=== PATIENT | female | born 1985 | race Caucasian/White ===

== ENCOUNTER 2017-12-07 08:13 | Day surgery (SDC) | payer BC ==
[2017-12-04 08:39] VITALS: BMI 22.4
[2017-12-07 09:06] VITALS: O2SAT 100
[2017-12-07] MEDS ORDERED: cefOXitin IV 2 gm in Dextrose 0 GM/0 ML BAG IVPB ONE (10:41)
[2017-12-07] MEDS ORDERED: ceFAZolin IV 1 gm in Dextrose 2 GM/100 ML BAG IVPB ONE (10:49)
[2017-12-07] MEDS ORDERED: Midazolam 2 MG/2 ML VIAL ONE (10:55)
[2017-12-07] MEDS ORDERED: Propofol 10 mg/ml Inj (20 ML) ONE (10:55)
[2017-12-07] MEDS ORDERED: Rocuronium 10 mg/ml (5 ml) ONE (10:59)
[2017-12-07] MEDS ORDERED: Oxycodone/Acetaminophen 5/325 mg Tab PO PRN (11:15)
[2017-12-07] MEDS ORDERED: Neostigmine Methylsulfate 3mg/3ml Syringe IV ONE (11:57)
[2017-12-07] MEDS ORDERED: ePHEDrine 50 mg/ml Inj ONE (12:04)
[2017-12-07] MEDS ORDERED: Flumazenil 0.1 mg/ml Inj (5ml) IVP ONE (12:31)
[2017-12-07] MEDS ORDERED: Lactated Ringer's 1,000 ML IV ONE (12:55)
[2017-12-07] MEDS ORDERED: HYDROmorphone 0.5 mg/0.5 ml ISec IVP PRN (12:59)
[2017-12-07] MEDS ORDERED: HYDROmorphone 0.5 mg/0.5 ml ISec ONE (13:07)
[2017-12-07 14:38] VITALS: RESP 18
[2017-12-07 17:04] VITALS: BP 97/50; PULSE 73; TEMP 97.4
--- NOTE | 2017-12-13 05:36 | OP ---
PROCEDURE DATE: 12/07/2017 NATURE OF OPERATION: Dilatation and curettage, hysteroscopy, laparoscopic lysis of pelvic adhesions, and aspiration of cul-de-sac fluid. ATTENDING SURGEON: Enrique Haque MD OPERATING SURGEON: Enrique Haque MD HOUSE PAINTER HELPER: Kyaw Moore MD CONTROLLED ATMOSPHERIC FURNACE BRAZER: Dr. Hill. KIND OF ANESTHESIA: General. PREOPERATIVE DIAGNOSES: Chronic pelvic pain, fibroid uterus, habitual . POSTOPERATIVE DIAGNOSES: Pelvic endometrial cyst with pelvic adhesions. FINDINGS: On pelvic examination under anesthesia, the external genitalia were normal, vagina was clean, cervix was closed, firm and pink. The uterus was slightly bulky with posterior fundal fibroid directed posteriorly, sounded to about 3.5 inches in depth with a smooth cavity, and a small amount of endometrial tissue obtained. Laparoscopic findings reveal multiple endometrial implant in posterior cul-de-sac area with implants on both ovaries and pelvic adhesions. I was not able to visualize the left fimbriated end of fallopian tube, and both ovaries were adherent with endometrial cyst. There were 10 mL of cul-de-sac fluid which was aspirated and sent for cytology. DESCRIPTION OF PROCEDURE: Under general anesthesia, the patient in dorsal lithotomy position, she was prepped and draped and catheterized in the usual sterile manner. A heavy weighted speculum was placed on the posterior vaginal vault and with the help of Sanchez speculum, the anterior lip of the cervix was grasped with a tenaculum. The uterus was sounded and found to be retroverted to a depth of 3.5 inches. Serial dilatation of the cervix was done with a Hanks dilator up to #18. Hysteroscopic instrument was inserted and with sorbitol, the uterine cavity was distended. Endometrial cavity was visualized, the hysteroscope was removed, and further dilatation of cervix was done with Hanks dilator up to #20. This was followed by sharp clockwise curettage of endometrial cavity which was productive of a small amount of endometrial tissue. The cavity was noted to be smooth. Then, the laparoscopy was done. The ZUMI cannula was inserted, was placed into the endocervix and held with a balloon. The Veress needle was inserted into the inferior fold of the umbilicus. The abdomen was insufflated with approximately 3 L of carbon dioxide. The trocar was inserted into the peritoneal cavity after the incision through the skin and fascia was made. The right-angled scope was placed into the abdomen and contents of the pelvis viewed. There were multiple endometrial implants noted in the cul-de-sac area with both ovaries with the pelvic adhesion which was lysed with the blunt probe and the adhesions. The left fimbriated end of the left fallopian tube was not able to visualize. Then, laparoscopic aspiration of cul-de-sac fluid was done. Then, 10 mL of fluid were sent to Pathology for cytology. The procedure was then terminated, after all the instruments were removed, and the abdomen evacuated of carbon dioxide. The subumbilical incision was closed with #4-0 Monocryl suture. The Steri-Strips was placed on the incision. The patient tolerated the procedure well and was sent to the recovery room in satisfactory condition. Enrique Haque MD
== END 2017-12-07 16:45 | disposition home or self-care (01) ==
LOC: C.SDS 08:13
PROVIDERS: ATTEND Obstetrics & Gynecology Gynecology
DX: R10.2 Pelvic and perineal pain (principal); N96 Recurrent pregnancy loss; D25.9 Leiomyoma of uterus, unspecified; G89.29 Other chronic pain; N73.6 Female pelvic peritoneal adhesions (postinfective); N85.8 Other specified noninflammatory disorders of uterus
CPT/HCPCS: 49322; 58558; 88305; J0690; J1170; J1885; J2001; J2250; J2405; J2704; J2710; J2765; J3010; J7120